=== PATIENT | female | born 1995 | race African-American/Black ===

== ENCOUNTER 2017-05-10 09:12 | Emergency (ER) | payer MEDICAID ==
[2010-09-15 09:46] VITALS: BMI 28.6
[2017-05-10 10:40] LABS: BASOPHILS 0.2 % (0-2); HEMATOCRIT 30.9 % (36.0-48.0); HEMOGLOBIN 9.6 g/dL (12-16); IMMATURE GRANULOCYTES 0.1 % (0-5); LYMPHOCYTES 6.8 % (15-50); MCH 23.2 pg (26.0-34.0); MCHC 31.1 g/dL (31.0-37.0); MCV 74.6 fL (80.0-100.0); MEAN PLATELET VOLUME 9.8 fL (7.4-10.4); MONOCYTES 0.9 % (2-11); RBC 4.14 10x6/uL (4.00-5.40); RDW 16.6 % (11.5-14.5); WBC 9.6 10x3/uL (4.8-10.8)
[2017-05-10 10:44] LABS: PLATELET COUNT 220 10x3/uL (130-400)
[2017-05-10 10:53] LABS: APPEARANCE CLOUDY (CLEAR); BACTERIA MANY /hpf (NONE SEEN); BILIRUBIN NEGATIVE (NEGATIVE); COLOR YELLOW (YELLOW); EPITHELIAL CELLS 0-5 /hpf (0-5); GLUCOSE NEGATIVE (NEGATIVE); KETONE NEGATIVE (NEGATIVE); MUCUS <1+ /lpf (NONE SEEN); NITRITE POSITIVE (NEGATIVE); PROTEIN 1+ mg/dL (NEGATIVE); RED CELLS - URINE 0-5 /hpf (0-5); WHITE CELLS - URINE 25-50 /hpf (0-5)
[2017-05-10 10:59] LABS: ALBUMIN 3.4 g/dL (3.4-5.0); ALKALINE PHOSPHATASE 51 U/L (46-116); ALT (SGPT) 13 U/L (10-68); BILIRUBIN - TOTAL 0.42 mg/dL (0.2-1.3); CALC OSMOLALITY 277 mosm/kg (275-300); CALCIUM 8.7 mg/dL (8.5-10.1); CARBON DIOXIDE 27.8 mmol/L (21.0-32.0); CHLORIDE - SERUM 106 mmol/L (98-107); CREATININE - SERUM 0.7 mg/dL (0.6-1.3); GLUCOSE 89 mg/dL (74-106); POTASSIUM - SERUM 3.4 mmol/L (3.5-5.1); PROTEIN - SERUM 6.8 g/dL (6.4-8.2); SODIUM 141 mmol/L (136-145); UREA NITROGEN 8 mg/dL (7-18); eGFR NON AFRICAN AMERICAN > 90 mL/min (90-120)
[2017-05-10 11:08] LABS: HCG URINE NEGATIVE (NEGATIVE)
== END 2017-05-10 12:20 | disposition home or self-care (01) ==
LOC: D.ER 09:12
PROVIDERS: Emergency Medicine
DX: R50.9 Fever, unspecified (principal); R10.32 Left lower quadrant pain; N10 Acute pyelonephritis; D64.9 Anemia, unspecified; J45.909 Unspecified asthma, uncomplicated

== ENCOUNTER 2017-08-04 12:54 | Emergency (ER) | payer MEDICAID ==
[2010-09-15 09:46] VITALS: BMI 28.6
== END 2017-08-04 15:06 | disposition home or self-care (01) ==
LOC: D.ER 12:54
DX: O26.891 Other specified pregnancy related conditions, first trimester (principal); Z3A.13 13 weeks gestation of pregnancy; J01.90 Acute sinusitis, unspecified; J20.9 Acute bronchitis, unspecified

== ENCOUNTER 2017-10-22 12:53 | Emergency (ER) | payer MEDICAID ==
[2010-09-15 09:46] VITALS: BMI 28.6
== END 2017-10-22 18:38 | disposition home or self-care (01) ==
LOC: D.ER 12:53
DX: B34.9 Viral infection, unspecified (principal)

== ENCOUNTER → 2017-12-31 17:04 | Outpatient (CLI) | payer MEDICAID ==
[2010-09-15 09:46] VITALS: BMI 28.6
[~2017-12-31 17:04] MED LIST: PRENATAL COMPLE1 TAB PO
[2017-12-31 17:26] LABS: APPEARANCE CLEAR (CLEAR); COLOR YELLOW (YELLOW); UDS - AMPHET NEGATIVE QUAL (NEGATIVE); UDS - BARB NEGATIVE QUAL (NEGATIVE); UDS - BENZO NEGATIVE QUAL (NEGATIVE); UDS - COCAINE NEGATIVE QUAL (NEGATIVE); UDS - OPIATE NEGATIVE QUAL (NEGATIVE); UDS - PCP NEGATIVE QUAL (NEGATIVE); UDS - THC NEGATIVE QUAL (NEGATIVE)
[2017-12-31 17:28] LABS: BILIRUBIN NEGATIVE (NEGATIVE); GLUCOSE NEGATIVE (NEGATIVE); KETONE MODERATE mg/dL (NEGATIVE); NITRITE NEGATIVE (NEGATIVE); PROTEIN NEGATIVE (NEGATIVE); UROBILINOGEN NORMAL (NORMAL)
== END | disposition home or self-care (01) ==
LOC: D.LDO 17:04
PROVIDERS: Obstetrics & Gynecology
DX: O26.893 Other specified pregnancy related conditions, third trimester (principal); Z3A.36 36 weeks gestation of pregnancy

== ENCOUNTER 2018-01-13 14:51 | Outpatient (CLI) | payer MEDICAID ==
[2010-09-15 09:46] VITALS: BMI 28.6
[2018-01-13] MEDS ORDERED: PRENATAL COMPLE1 TAB PO (14:57)
[2018-01-13 15:51] LABS: BASOPHILS 0.2 % (0-2); EOSINOPHILS 2.2 % (0-7); HEMATOCRIT 27.2 % (36.0-48.0); HEMOGLOBIN 8.7 g/dL (12-16); IMMATURE GRANULOCYTES 0.3 % (0-5); LYMPHOCYTES 21.2 % (15-50); MCH 25.7 pg (26.0-34.0); MCV 80.2 fL (80.0-100.0); MEAN PLATELET VOLUME 9.9 fL (7.4-10.4); MONOCYTES 10.2 % (2-11); NEUTROPHILS 65.9 % (40-80); PLATELET COUNT 236 10x3/uL (130-400); RBC 3.39 10x6/uL (4.00-5.40); RDW 13.5 % (11.5-14.5); WBC 5.9 10x3/uL (4.8-10.8)
[2018-01-13 16:04] LABS: ALBUMIN 2.4 g/dL (3.4-5.0); ALKALINE PHOSPHATASE 87 U/L (46-116); ALT (SGPT) 19 U/L (10-68); BILIRUBIN - DIRECT 0.09 mg/dL (0.00-0.30); BILIRUBIN - INDIRECT 0.25 mg/dL (0.00-1.00); BILIRUBIN - TOTAL 0.34 mg/dL (0.2-1.3); CALC OSMOLALITY 277 mosm/kg (275-300); CALCIUM 8.3 mg/dL (8.5-10.1); CARBON DIOXIDE 24.3 mmol/L (21.0-32.0); CHLORIDE - SERUM 107 mmol/L (98-107); CREATININE - SERUM 0.5 mg/dL (0.6-1.3); GLUCOSE 101 mg/dL (74-106); POTASSIUM - SERUM 3.2 mmol/L (3.5-5.1); PROTEIN - SERUM 5.4 g/dL (6.4-8.2); SODIUM 141 mmol/L (136-145); UREA NITROGEN 5 mg/dL (7-18); URIC ACID 2.5 mg/dL (2.6-7.2); eGFR NON AFRICAN AMERICAN > 90 mL/min (90-120)
[2018-01-24 18:19] VITALS: BMI 30.7
== END 2018-01-13 19:12 ==
LOC: D.LDO 14:51
PROVIDERS: Obstetrics & Gynecology
DX: O26.899 Other specified pregnancy related conditions, unspecified trimester (principal); Z3A.00 Weeks of gestation of pregnancy not specified

== ENCOUNTER 2018-01-24 14:44 | Inpatient (IN) | payer MEDICAID ==
[~2018-01-24] VITALS: Ht 167.6 cm; Wt 86.2 kg
--- NOTE | ~2018-01-24 | DS ---
PATIENT:GEOFF CROWELL :89 MEDICAL RECORD: [id number] DISCHARGE SUMMARY ADMISSION DATE: 01/24/18 DISCHARGE DATE: 01/26/18 DATE OF ADMISSION: 01/24/2018 HOSPITAL COURSE: A 22-year-old, G2, P1 at 39 weeks and 3 days, admitted in labor. The patient was noted to be O positive, group B strep negative, and rubella immune. PAST MEDICAL HISTORY: The patient had a past medical history significant for: 1. Mild intermittent asthma. 2. History of chlamydia during this . 3. History of anemia. The patient also with history of asthma. PAST SURGICAL HISTORY: The patient reported no significant surgical history. ALLERGIES: No allergies. MEDICATIONS: Included vitamins. FAMILY HISTORY: The patient reported no significant family history. SOCIAL HISTORY: Significant for being a former tobacco user. PHYSICAL EXAMINATION: VITAL SIGNS: Stable. LUNGS: Clear to auscultation. CARDIOVASCULAR: Heart with regular rate and rhythm. PELVIC: Uterus was appropriately sized and appropriately tender. EXTREMITIES: Lower extremities were free of erythema, swelling or Homans sign. LABORATORY DATA: Category 1 tracing at admission. Admit hemoglobin was 10.3 with a platelet count of 224. ASSESSMENT AND PLAN: 1. At admission, term intrauterine at 39 weeks. 2. Labor. 3. History of chlamydia. 4. Mild intermittent asthma. 5. Mild elevations in blood pressure, at which point preeclamptic labs were obtained. The patient progressed and AROM was performed with clear fluid, category 1 tracing. The patient progressed to second stage of labor and had a spontaneous vaginal delivery over an intact perineum. Delivery note is as on the chart. The patient did well overnight on day #0, tolerating general diet and p.o. pain meds, ambulating and voiding freely. On morning of day #1, the patient continued to do well. Vital signs remained stable. The patient was afebrile. Uterus is infraumbilical and nontender with minimal lochia. The patient was tolerating general diet and p.o. pain meds, ambulating freely. The patient continued to do well overnight on day #1. On the morning of day #2, the patient continued to be afebrile and normotensive. DISCHARGE SUMMARY REPORT [id number] GEOFF CROWELL Uterus was infraumbilical and nontender with minimal lochia. The patient was discharged home on day #2 with instructions to follow up in 4 weeks. TRANSINT:[id number] Voice Confirmation ID: [id number] DOCUMENT ID: [id number] TATI COREAS MD at 1304 CC: [id number] DICTATION DATE: 03/06/18624 BILLING COLLECTIONS SPECIALIST: 03/06/18 1615 DIS IN 01/26/18 [place] [id number] [place] [id number]
[2018-01-24 16:01] LABS: APPEARANCE CLEAR (CLEAR); BILIRUBIN NEGATIVE (NEGATIVE); COLOR YELLOW (YELLOW); GLUCOSE NEGATIVE (NEGATIVE); KETONE NEGATIVE (NEGATIVE); NITRITE NEGATIVE (NEGATIVE); PROTEIN NEGATIVE (NEGATIVE); SPECIFIC GRAVITY 1.015 (1.005-1.020); UROBILINOGEN NORMAL (NORMAL)
[2018-01-24 18:19] VITALS: BP 144/81; Ht 167.6 cm; Wt 86.2 kg
[2018-01-24 19:00] LABS: HEMATOCRIT 32.3 % (36.0-48.0); HEMOGLOBIN 10.3 g/dL (12-16); MCH 25.8 pg (26.0-34.0); MCHC 31.9 g/dL (31.0-37.0); MCV 80.8 fL (80.0-100.0); MEAN PLATELET VOLUME 10.3 fL (7.4-10.4); RDW 14.9 % (11.5-14.5); WBC 6.9 10x3/uL (4.8-10.8)
[2018-01-25 02:25] VITALS: BP 135/92
[2018-01-25 04:46] LABS: HEMATOCRIT 31.2 % (36.0-48.0); MCH 25.6 pg (26.0-34.0); MCHC 32.1 g/dL (31.0-37.0); MCV 79.8 fL (80.0-100.0); RBC 3.91 10x6/uL (4.00-5.40); RDW 14.7 % (11.5-14.5)
[2018-01-25 04:58] LABS: WBC 9.9 10x3/uL (4.8-10.8)
[2018-01-25 07:44] VITALS: BP 132/75
[2018-01-25 13:10] VITALS: BP 111/62
[2018-01-25 19:20] VITALS: BP 126/70
[2018-01-26 07:31] LABS: RAPID PLASMA REAGIN Non Reactive (Non Reactive)
[2018-01-26 07:50] VITALS: BP 122/70
[2018-01-26 12:00] VITALS: BP 123/86
== END 2018-01-26 14:30 | disposition home or self-care (01) | DRG 775 ==
LOC: D.LDO 14:44 → D.LD 18:00 → D.WS 18:00
PROVIDERS: Obstetrics & Gynecology
PROC: 10E0XZZ Delivery of Products of Conception, External Approach (ICD-10-PCS; principal; 2018-01-25)
DX: O16.4 Unspecified maternal hypertension, complicating childbirth (principal); Z3A.39 39 weeks gestation of pregnancy; Z37.0 Single live birth; Z87.891 Personal history of nicotine dependence

== ENCOUNTER 2018-04-23 23:25 | Emergency (ER) | payer MEDICAID ==
[~2018-04-23] VITALS: Ht 167.6 cm; Wt 70.0 kg
[2018-04-23 23:27] VITALS: Ht 167.6 cm; Wt 70.0 kg
[2018-04-23 23:52] LABS: APPEARANCE CLEAR (CLEAR); COLOR YELLOW (YELLOW); GLUCOSE NEGATIVE (NEGATIVE); KETONE NEGATIVE (NEGATIVE); NITRITE NEGATIVE (NEGATIVE); PROTEIN NEGATIVE (NEGATIVE); UROBILINOGEN NORMAL (NORMAL)
[2018-04-23 23:53] LABS: BILIRUBIN NEGATIVE (NEGATIVE)
[2018-04-24] LABS: HCG SERUM NEGATIVE (NEGATIVE)
[2018-04-24 00:05] LABS: UDS - AMPHET NEGATIVE QUAL (NEGATIVE); UDS - BARB NEGATIVE QUAL (NEGATIVE); UDS - BENZO NEGATIVE QUAL (NEGATIVE); UDS - COCAINE NEGATIVE QUAL (NEGATIVE); UDS - OPIATE NEGATIVE QUAL (NEGATIVE); UDS - PCP NEGATIVE QUAL (NEGATIVE); UDS - THC NEGATIVE QUAL (NEGATIVE)
[2018-04-24 00:07] LABS: BASOPHILS 0.5 % (0-2); EOSINOPHILS 6.1 % (0-7); HEMATOCRIT 40.1 % (36.0-48.0); HEMOGLOBIN 13.2 g/dL (12-16); IMMATURE GRANULOCYTES 0.3 % (0-5); LYMPHOCYTES 54.7 % (15-50); MCH 26.8 pg (26.0-34.0); MCHC 32.9 g/dL (31.0-37.0); MCV 81.5 fL (80.0-100.0); MEAN PLATELET VOLUME 10.1 fL (7.4-10.4); MONOCYTES 7.4 % (2-11); RBC 4.92 10x6/uL (4.00-5.40); RDW 14.5 % (11.5-14.5); WBC 5.9 10x3/uL (4.8-10.8)
[2018-04-24 00:12] LABS: PLATELET COUNT 292 10x3/uL (130-400)
[2018-04-24 00:14] LABS: ACETAMINOPHEN 1.7 ug/mL (10.0-30.0); CALC OSMOLALITY 284 mosm/kg (275-300); CALCIUM 8.2 mg/dL (8.5-10.1); CARBON DIOXIDE 25.9 mmol/L (21.0-32.0); CHLORIDE - SERUM 107 mmol/L (98-107); CREATININE - SERUM 0.8 mg/dL (0.6-1.3); GLUCOSE 107 mg/dL (74-106); MAGNESIUM - SERUM 1.9 mg/dL (1.8-2.4); POTASSIUM - SERUM 3.4 mmol/L (3.5-5.1); SODIUM 144 mmol/L (136-145); THYROID STIMULATING HORMONE 2.94 uIU/mL (0.36-3.74); UREA NITROGEN 6 mg/dL (7-18); eGFR NON AFRICAN AMERICAN > 90 mL/min (90-120)
[2018-04-24 00:51] VITALS: BP 135/58
== END 2018-04-24 01:35 | disposition home or self-care (01) ==
LOC: D.ER 23:25
PROVIDERS: Emergency Medicine
DX: F43.23 Adjustment disorder with mixed anxiety and depressed mood (principal); Z76.5 Malingerer [conscious simulation]; F17.200 Nicotine dependence, unspecified, uncomplicated

== ENCOUNTER 2019-06-29 17:31 | Outpatient (CLI) | payer MEDICAID ==
[2018-04-23 23:27] VITALS: BMI 24.9
== END 2019-06-29 19:16 | disposition home or self-care (01) ==
LOC: D.LDO 17:31 → D.LD 17:31 → D.LDO 19:16
PROVIDERS: ATTEND Student in an Organized Health Care Education/Training Program
DX: O62.4 Hypertonic, incoordinate, and prolonged uterine contractions (principal); Z3A.36 36 weeks gestation of pregnancy

== ENCOUNTER 2019-07-03 07:44 | Inpatient (IN) | payer MEDICAID ==
[2019-07-03] VITALS (11 sets, daily range): BP systolic 118–153; BP diastolic 70–86; Ht 167.6 cm; Wt 86.2 kg
[~2019-07-03] VITALS: Ht 167.6 cm; Wt 86.2 kg
[2019-07-03 09:14] LABS: HEMATOCRIT 25.6 % (36.0-48.0); HEMOGLOBIN 7.8 g/dL (12-16); MCH 22.9 pg (26.0-34.0); MCHC 30.5 g/dL (31.0-37.0); MCV 75.1 fL (80.0-100.0); MEAN PLATELET VOLUME 10.1 fL (7.4-10.4); RBC 3.41 10x6/uL (4.00-5.40); RDW 14.5 % (11.5-14.5); WBC 5.9 10x3/uL (4.8-10.8)
--- NOTE | 2019-07-03 13:48 | NUR ---
BABY GIRL @ 1341 PLACENTA- 1342
--- NOTE | 2019-07-03 14:59 | NUR ---
1433 FUNDUS 2 FINGER BREATHS ABOVE UMBILICUS, FIRM AND MIDLINE
--- NOTE | 2019-07-03 14:59 | NUR ---
1500 FUNDUS 2 FINGER BREATHS ABOVE UMBILICUS, FIRM AND MIDLINE. NO CLOTS RETURN DURING MASSAGE
--- NOTE | 2019-07-03 15:18 | NUR ---
PT RECIEVED VIA BED TO ROOM 1274 FROM RECOVERY. PT AAOx3, RATING PAIN 6/10 AT INCISION AND CRAMPING. IV INFUSING ORDERED. SECOND UNIT PRBC INFUSING TO RIGHT HAND, PITOCIN IN NS INFUSING TO LEFT WRIST. LARGE OCCLUSIVE DRESSING OVER LT ABD INCISION IS C/D/I. FF, ML, U/U. SMALL RUBRA LOCHIA NOTED TO PERIPAD, NO CLOTS EXPRESSED WITH MASSAGE. ICE PACK OVER ABD INCISION. THOMPSON CATH DRAINING CLEAR YELLOW URINE TO BEDSIDE DRAINAGE. SCD'S ON LE BILAT AND ON PUMP. PT REQUESTING PAIN MED AND ICE. WILL ADMIN ORDERED. SRUx2, CL IN REACH.
--- NOTE | 2019-07-03 15:48 | NUR ---
PT REPORTS IMPROVEMENT IN PAIN. THOMPSON CATH DRAINING CLEAR YELLOW URINE. 125ML EMPTIED FROM UROMETER. FF, ML, U/U. SMALL RUBRA LOCHIA, NO CLOTS. THICK CERVICAL MUCOUS NOTED TO BE DISLODGED WITH LOCHIA WITH MASSAGE. PERIPAD CHANGED. PT DENIES NEEDS AT THIS TIME. SRUx2, CL IN REACH. IN [place] AT BEDSIDE.
--- NOTE | 2019-07-03 16:00 | NUR ---
BLOOD TRANFUSION COMPLETE. LINE FLUSHED WITH NS. RIGHT HAND PIV SALINE LOCKED.
--- NOTE | 2019-07-03 16:27 | NUR ---
THIS RN TO ROOM FOR FUNDAL CHECK. 400ML CLEAR YELLOW URINE EMPTIED FROM UROMETER. FF, ML, U/U. SMALL RUBRA LOCHIA WITH CERVICAL MUCOUS NOTED, PERIPAD CHANGED. NO CLOTS EXPELLED WITH MASSAGE. SRUx2, CL IN REACH. WILL CONT TO MONITOR.
--- NOTE | 2019-07-03 17:10 | NUR ---
DR PERSAUD PHONED AND NOTIFIED OF PT'S BP'S OF 140'S/80'S AND 150'S/80'S. ORDER RECEIVED TO CONTINUE TO MONITOR, AND NOTIFY OF ANY BP'S OF 160/100 OR GREATER. WILL CONT TO MONITOR.
--- NOTE | 2019-07-03 18:12 | NUR ---
THIS RN ROOM FOR FUNDAL CHECK. 550ML CLEAR YELLOW URINE EMPTIED FROM UROMETER. THOMPSON BAG EMPTIED FOR END OF SHIFT. FF, ML, U/U. SMALL RUBRA LOCHIA WITH MUCOUS NOTED, NO CLOTS EXPELLED WITH MASSAGE. PERIPAD CHANGED. PT PROVIDED WITH ICE AND ICE WATER PER REQUEST, ENCOURAGED TO SIP SLOWLY. NEW BAG PITOCIN HUNG ORDERED AT 125ML/H, SEE EMAR FOR DOC. PT DENIES FURTHER NEEDS AT THIS TIME. PT INSTRUCTED ON NEXT MED TIMES AVAILABLE FOR PAIN MEDS, VERBALIZES UNDERSTANDING AND DENIES QUESTIONS. SRUx2, CL IN REACH.
[2019-07-03 18:44] LABS: BASOPHILS 0.1 % (0-2); EOSINOPHILS 0.5 % (0-7); IMMATURE GRANULOCYTES 0.4 % (0-5); LYMPHOCYTES 9.6 % (15-50); MCH 23.6 pg (26.0-34.0); MCHC 31.3 g/dL (31.0-37.0); MCV 75.4 fL (80.0-100.0); MEAN PLATELET VOLUME 10.1 fL (7.4-10.4); MONOCYTES 6.5 % (2-11); NEUTROPHILS 82.9 % (40-80); PLATELET COUNT 226 10x3/uL (130-400); RBC 3.98 10x6/uL (4.00-5.40); RDW 15.1 % (11.5-14.5)
[2019-07-03 18:51] LABS: HEMOGLOBIN 9.4 g/dL (12-16)
--- NOTE | 2019-07-03 19:50 | NUR ---
PT RESTING IN BED. ASSESSMENT COMPLETE PER FLOWSHEET. VS OBTAINED. PT C/O INCISION PAIN RATING IT AT 9/10. MORPHINE 4MG GIVEN SIVP. BBS CLEAR. ACTIVE BS X4 QUADRANTS. FUNDUS FIRM AT UMBILICUS. LOW TRANSVERSE ABD INC COVERED WITH DRESSING C/D/I. SMALL AMOUNT OF LOCHIA NOTED ON PERIPAD. FC DRAINING TO GRAVITY WITH 250ML OF YELLOW URINE OBTAINED FROM BAG. THOMPSON SECURED TO PTS RIGHT LEG. THOMPSON AND PERICARE DONE. PERIPAD CHANGED SCDS ON AND WORKING PROPERLY. IV PATENT AND INFUSING NS WITH 20 UNIT PIT TO RIGHT WRIST. SL TO LEFT HAND. NO TENDERNESS OR REDNESS NOTED TO EITHER SITE. FRESH ICE PACK PLACED TO ABD INCISION. POC DISCUSSED INCLUDING PAIN MANAGEMENT FUNDAL CHECKS, LOCHIA, IV MEDICATIONS, AND FC. QUESTIONS ANSWERED. PT INSTRUCTED TO NOTIFY NURSE WITH ANY PROBLEMS, NEEDS, OR CONCERNS. BED IN LOW POSITION. SR UP X2. CALL LIGHT WITHIN PTS REACH.
--- NOTE | 2019-07-03 20:08 | NUR ---
THIS RN HAS ASSESSED THIS PT AND CONCURS WITH ASSESSMENT CHARTED BY Ammon JUDD RN. POC DISCUSSED, PT DENIES NEEDS AT THIS TIME. IN ARMS. CALL LIGHT AND PHONE WITHIN REACH. WILL CONTINUE TO MONITOR.
--- NOTE | 2019-07-03 20:30 | NUR ---
ORDERS REC'D TO SL PIV, D/C THOMPSON CATH, 600 MG PO MOTRIN Q6H ATC, 10/325 MG PERCOCET Q4PRN MODERATE-SEVERE PAIN, 5/325MG PERCOCET Q4PRN MILD-MODERATE PAIN AFTER 0100 WHEN PT FIRST WAKES UP IF SLEEPING DO NOT WAKE PT TO NORMALIZE AND TO ADT.
--- NOTE | 2019-07-03 20:35 | NUR ---
PT RESTING IN BED. IN OPEN CRIB AT BEDSIDE. PT REPORTS HER PAIN IS NOW 8/10. DENIES ANY COMPLAINTS OR NEEDS AT THIS TIME. INSTRUCTED PT TO NOTIFY NURSE WITH ANY PROBLEMS, NEEDS, OR CONCERNS. VERBALIZED UNDERSTANDING.
--- NOTE | 2019-07-03 21:50 | NUR ---
PT RESTING IN BED WITH EYES CLOSED. INFANT IN OPEN CRIB AT BEDSIDE. NO DISTRESS NOTED. BED IN LOW POSITION. SR UP X2. CALL LIGHT WITHIN PTS REACH.
--- NOTE | 2019-07-03 22:45 | NUR ---
PT RESTING IN BED HOLDING . DENIES ANY COMPLAINTS OR NEEDS AT THIS TIME. INSTRUCTED PT TO NOTIFY NURSE WITH ANY PROBLEMS, NEEDS, OR CONCERNS. VERBALIZED UNDERSTANDING. BED IN LOW POSITION. SR UP X2. CALL LIGHT WITHIN PTS REACH.
--- NOTE | 2019-07-03 23:30 | NUR ---
PT RESTING IN BED. VS OBTAINED. FUNDUS FIRM AT UMBILICUS. MODERATE AMOUNT OF LOCHIA NOTED ON PERIPAD. PERIPAD AND UNDER[PAD CHANGED. FC TO GRAVITY AND DRAINING YELLOW COLORED URINE WITH 400ML OF COLLECTED IN THOMPSON BAG. IV PATETNT AND NO REDNESS OR TENDERNESS NOTED. SCDS ON AND WORKING P[ROPERLY. FRESH ICE PACK PLACED TO ABD INCISION. WATER PITCHER FILLED. PT C/O PAIN. WILL PROVIDE PAIN MEDICATION PER EMAR. NO OTHER REQUEST MADE. INATRUCTED PT TO NOTIFY NURSE WITH ANY PROBLEMS, NEEDS, OR CONCERNS. VERBALIZED UNDERSTANDING. BED IN LOW POSITION. SR UP X2. CALL LIGHT WITHIN PT REACH.
--- NOTE | 2019-07-03 23:53 | NUR ---
MORHINE 4MG GIVEN SIVP PER PT REQUEST FOR C/O INCISIONAL PAIN. INSTRUCTED PT TO NOTIFY NURSE IF MEDICATION NOT EFFECTIVE OR WITH ANY OTHER PROBLEMS, NEEDS, OR COCNERNS. VERBALIZED UNDERSTANDING.
--- NOTE | 2019-07-04 00:30 | NUR ---
PT RESTING IN BED HOLDING . PT REPORTS THAT HER PAIN IS NOW AT 2/10. NO REQUEST MADE. BED IN LOW POSITION. SR UP X2. CALL LIGHT WITHIN PTS REACH.
--- NOTE | 2019-07-04 00:49 | NUR ---
SPOKE WITH TIFF IN LAB REGARDING 0000 CBC ORDER. PER TIFF, AAMIR WAS IN ER AND SHE WOULD NOTIFY HER TO COME TO UNIT TO DRAW ORDERED CBC.
--- NOTE | 2019-07-04 01:21 | NUR ---
COST ANALYST AT BEDSIDE FOR CBC DRAW.
[2019-07-04 01:40] LABS: BASOPHILS 0.2 % (0-2); EOSINOPHILS 1.2 % (0-7); HEMATOCRIT 27.7 % (36.0-48.0); HEMOGLOBIN 8.8 g/dL (12-16); IMMATURE GRANULOCYTES 0.2 % (0-5); LYMPHOCYTES 11.2 % (15-50); MCH 23.7 pg (26.0-34.0); MCHC 31.8 g/dL (31.0-37.0); MCV 74.7 fL (80.0-100.0); MEAN PLATELET VOLUME 9.9 fL (7.4-10.4); MONOCYTES 9.1 % (2-11); NEUTROPHILS 78.1 % (40-80); PLATELET COUNT 209 10x3/uL (130-400); RBC 3.71 10x6/uL (4.00-5.40); RDW 14.9 % (11.5-14.5); WBC 11.7 10x3/uL (4.8-10.8)
--- NOTE | 2019-07-04 01:50 | NUR ---
FC DC'D PER MD ORDER WITH 300ML OF YELLOW URINE COLLECTED IN THOMPSON BAG. PERICARE DONE. SMALL AMOUNT OF LOCHIA NOTED. PERIPAD AND PANTIES PLACED. FUNDUS FIRM AT UMBILICUS. IV SL AND FLUSHED. PT INSTRUCTED ON VOID CHECKS AND TO NOTIFY NURSE FOR ASSISTANCE WHEN NEEDING TO GET UP TO BATHROOM. PT TOLERATED WELL. BED IN LOW POSITION. SR UP X2. CALL LIGHT WITHIN PTS EACH.
--- NOTE | 2019-07-04 02:10 | NUR ---
PT RESTING IN BED PERCOCET 5 X1 TABLET GIVEN FOR C/O INCISIONAL PAIN. CRACKERS, PEANUT BUTTER, AND APPLE JUICE PROVIDED. INSTRUCTED PT TO NOTIFY NURSE WITH ANY OTHER PROBLEMS, NEEDS, OR CONCERNS. VERBALIZED UNDERSTANDING.
[2019-07-04 04:05] VITALS: BP 128/80
--- NOTE | 2019-07-04 04:05 | NUR ---
PT RESTING IN BED HOLDING . VS OBTAINED. PT DENIES ANY NEEDS AT THIS TIME. OFFERED TO ASSIST PT UP TO BATHROOM. PT DECLINED. NO NEEDS OR REQUEST MADE. SCDS ON AND WORKING PROPERLY. INSTRUCTED PT TO NOTIFY NURSE WITH ANY PROBLEMS, NEEDS, OR CONCERNS. VERBALIZED UNDERSTANDING. BED IN LOW POSITION. SR UP X2. CALL LIGHT WITHIN PTS REACH.
--- NOTE | 2019-07-04 05:45 | NUR ---
PT ASSISTED UP TO BATHROOM. VOIDED 100ML OF YELLOW URINE INTO SPECIPAN AND AN UNMEASURED AMOUNT INTO TOLIET. SCANT AMOUNT OF LOCHIA NOTED ON PERIPAD. CLEAN JEFF PAD PLACED. PT ASSISTED BACK TO BED. FRESH ICE PACK PLACED TO ABD INCISION. APPLE JUICE PROVIDED. NO OTHER REQUEST MADE. INSTRUCTED PT TO NOTIFY NURSE WITH ANY PROBLEMS, NEEDS, OR COCNERNS. VERBALIZED UNDERSTANDING. BED IN LOW POSITION. SR UP X2. CALL LIGHT WITHIN PTS REACH.
--- NOTE | 2019-07-04 06:09 | NUR ---
PT RESTING IN BED. PERCOCET 5 X1 TAB GIVEN FOR INCISIONAL PAIN. NO OTHER REQUEST MADE. INSTRUCTED PT TO NOTIFY NURSE WITH ANY PROBLEMS, NEEDS, OR CONCERNS. VERBALIZED UNDERSTANDING.
--- NOTE | 2019-07-04 06:57 | NUR ---
INFANT RETURNED TO NBN VIA OPEN CRIB PER PT REQUEST.
--- NOTE | 2019-07-04 07:30 | NUR ---
SHIFT REPORT TAKEN. PATIENT RESTING IN BED SUPINE WITH HOB ELEVATED. EATING REGUALR DIET BREAKFAST.
[2019-07-04 08:10] LABS: RAPID PLASMA REAGIN Non Reactive (Non Reactive)
[2019-07-04 09:00] VITALS: BP 129/76
--- NOTE | 2019-07-04 09:00 | NUR ---
ASSESSMENT COMLETED. FEEDING BABY. REQUESTING PAIN MEDICINE WHEN AVAILABLE. INFORMED PATIENT MOTRIN IS AVAILABLE AT 0930 AND PERCOCET AT 1000.
--- NOTE | 2019-07-04 09:30 | NUR ---
ASSISTED TO BATHROOM TO VOID. VOIDED WITHOUT DIFFICULTY. ASSISTED BACK TO BED. MOTRIN GIVEN. BOTH SALINE LOCKS FLUSHED WITHOUT DIFFICULTY.
--- NOTE | 2019-07-04 10:00 | NUR ---
ASSISTED TO SHOWER. LINENS CHANGED.
--- NOTE | 2019-07-04 10:20 | NUR ---
DRESSING REMOVED. INCISION DRY AND INTACT. 1/2 CM RED DRAINAGE NOTED ON RIGHT SIDE OF DRESSING. PERIPAD PLACED OVER INCISION.
--- NOTE | 2019-07-04 11:50 | NUR ---
TO ROOM TO CHECK ON PATIENT. SIGNIFICANT OTHER AND YOUNG CHILD AT BEDSIDE. PATIENT SITTING UP IN BED. STATES PAIN IS BETTER.
[2019-07-04 13:11] VITALS: BP 123/66
--- NOTE | 2019-07-04 13:12 | NUR ---
PT RESTING IN BED WITH TODDLER WATCHING TV WITH INFANT IN OPEN CRIB AT BEDSIDE. NO COMPLAINTS AT THIS TIME.
--- NOTE | 2019-07-04 15:00 | NUR ---
RESTING IN BED WITH EYES CLOSED. INFANT IN NURSERY. TODDLER ASLEEP ON COUCH AT BEDSIDE. NO OTHER FAMILY IN ROOM AT THIS TIME.
--- NOTE | 2019-07-04 15:50 | NUR ---
AMBULATING IN ROOM. REQUESTS PAIN MED.
[2019-07-04 16:30] VITALS: BP 135/81
--- NOTE | 2019-07-04 18:30 | NUR ---
PATIENT RESTING IN BED WITH TODDLER AT BEDSIDE AND IN OPEN CRIB AT BEDSIDE. PATIENT C/O IV IN LEFT FOREARM HURTING. BOTH SALINE LOCKS D/C'D. BOTH CATHETERS INTACT. BANDAGES PLACED OVER INSERTION SITES.
--- NOTE | 2019-07-04 19:00 | NUR ---
REPORT RECEIVED FROM AM SHIFT TO ASSUME PT CARE.
--- NOTE | 2019-07-04 19:56 | NUR ---
PERCOCET ADMINISTERED PER PT REQUEST, SEE EMAR
[2019-07-04 20:10] VITALS: BP 115/58
--- NOTE | 2019-07-04 20:20 | NUR ---
SHIFT ASSESSMENT COMPLETED BY KATE FIGUEROA AT THIS TIME, SEE FLOWSHEET
--- NOTE | 2019-07-04 21:10 | NUR ---
PT IS DOING WELL. NO C/O AT THIS TIME. SHE RATES HER PAIN AT A 2. RN TALKED TO HER ABOUT RESTING WHEN BABY IS IN THE NURSERY. SHE AGREES TO THIS. AT THIS TIME THE DADDY AND YOUNG SISTER ARE IN THE ROOM.
--- NOTE | 2019-07-04 22:30 | NUR ---
PT IS RESTING QUIETLY AT THIS TIME. NO C/O OR NEEDS.
[2019-07-04 23:47] VITALS: BP 133/77
--- NOTE | 2019-07-04 23:54 | NUR ---
PT WAS SITTING UP IN BED WITH BABY. SHE WAS IN THE PROCESS OF PUTTING BABY BACK IN THE CRIB. WHEN ASKED ABOUT HER PAIN LEVEL SHE SAID IT WAS OK. FUNDUS IS FIRM. INCISION HAS NO REDNESS OR DRAINAGE. PT IS UP AND DOWN WITH NO PROBLEM.
--- NOTE | 2019-07-05 01:51 | NUR ---
ROUNDING NOTE: PT IS RESTING PEACEFULLY WITH HER EYES CLOSED AT THIS TIME. RESPIRATIONS ARE EVEN AND NO DISTRESS. BABY IS AT THE BEDSIDE.
[2019-07-05 04:03] VITALS: BP 136/82
--- NOTE | 2019-07-05 04:03 | NUR ---
PT IS SLIGHTLY SITTING UP IN BED. SHE STATES HER PAIN IS 10/10. I REINFORCED THAT HER PERCOCET CAN BE GIVEN EVERY 4 HOURS NEEDED. BABY IS ASLEEP IN THE CRIB. NO NEEDS AT THIS TIME. PERCOCET AND MOTRIN GIVEN PO.
--- NOTE | 2019-07-05 05:05 | NUR ---
PT IS AWAKE FEEDING THE BABY. SHE RATES HER PAIN A 4 AT THIS TIME. NO NEW C/O OR NEEDS.
[2019-07-05 06:11] LABS: BASOPHILS 0.3 % (0-2); EOSINOPHILS 3.2 % (0-7); HEMATOCRIT 26.3 % (36.0-48.0); HEMOGLOBIN 8.3 g/dL (12-16); IMMATURE GRANULOCYTES 0.1 % (0-5); LYMPHOCYTES 24.1 % (15-50); MCH 23.9 pg (26.0-34.0); MCHC 31.6 g/dL (31.0-37.0); MCV 75.8 fL (80.0-100.0); MEAN PLATELET VOLUME 10.6 fL (7.4-10.4); MONOCYTES 9.4 % (2-11); NEUTROPHILS 62.9 % (40-80); PLATELET COUNT 209 10x3/uL (130-400); RBC 3.47 10x6/uL (4.00-5.40); RDW 15.5 % (11.5-14.5); WBC 9.4 10x3/uL (4.8-10.8)
--- NOTE | 2019-07-05 06:45 | NUR ---
DR. PERSAUD IN TO SEE PATIENT. REPORT RECEIVED FROM Khang OVIEDO RN.
--- NOTE | 2019-07-05 07:30 | NUR ---
IN TO SEE PATIENT. SITTING UP IN BED EATING BREAKFAST. FAMILY AT BEDSIDE. AT BEDSIDE IN OPEN CRIB. ASSESSMENT COMPLETED. NO COMPLAINTS OR REQUESTS AT THIS TIME. INFORMED PATIENT THAT DISCHARGE ORDER HAS BEEN RECIEVED FROM DR. PERSAUD.
[2019-07-05 07:35] VITALS: BP 134/74
[2019-07-05] MEDS ORDERED: PERCOCET 5-3251 TAB PO (09:19)
--- NOTE | 2019-07-05 10:30 | NUR ---
DISCHARGED TEACHING COMPLETED. PATIENT STATES UNDERSTANDING. APPOINTMENT CARD AND PRESCRIPTION GIVEN. DISCHARGED HOME IN STABLE CONDITION VIA WHEELCHAIR TO PRIVATE VEHICLE ACCOMPANIED BY NURSE.
--- NOTE | 2019-07-10 08:52 | OP ---
PATIENT NAME: GEOFF CROWELL MEDICAL RECORD: [id number] :93 LOCATION:[facility] [id number] ADMISSION DATE:07/03/19 SURGEON: IDA PERSAUD DO DATE OF OPERATION: 07/03/2019 PREOPERATIVE DIAGNOSIS: Nonreassuring heart tracing. POSTOPERATIVE DIAGNOSIS: Nonreassuring heart tracing. PRIMARY SURGEON: Ida Persaud DO ANESTHESIA: Jm Hadley CRNA. PROCEDURE: Primary low transverse section via Pfannenstiel incision. FINDINGS: Female , delivered at 1341. Weight 7 pounds 14 ounces, Apgars 9 and 9. Normal appearing uterus, bilateral fallopian tubes, and bilateral ovaries. SPECIMENS: Placenta and cord blood. ESTIMATED BLOOD LOSS: 1200 cc. IV FLUIDS: 1500 cc and 1 unit of PRBCs. URINE OUTPUT: 700 cc. COMPLICATIONS: None. CONDITION: Stable. PROCEDURE: The risks, benefits, alternatives and indications of the procedure were discussed with the patient. She voiced an understanding of the procedure and agreed to proceed. DESCRIPTION OF PROCEDURE: She was taken to the OR where spinal anesthesia was administered and found to be adequate. She was placed in the dorsal supine position with a leftward tilt. She was prepped and draped in the normal sterile fashion. A Pfannenstiel skin incision was made with a scalpel and carried down to the underlying layer of the fascia with the Bovie. The fascia was incised at the midline and extended laterally. The inferior aspect of the fascial incision was grasped with Gena clamps and the rectus muscle was dissected off sharply. Attention was then turned to the superior aspect of the fascial incision. The rectus muscle was dissected off in a similar fashion. The rectus muscle was in the midline down to the level of the peritoneum. The peritoneum was identified and noted to be free of adherent bowel and entered bluntly. The peritoneum was further with gentle traction. The bladder blade was inserted. The uterus was incised in a transverse fashion in the lower uterine segment and the incision was extended with cephalad and caudad traction. The infant's head was brought to the incision and the infant delivered without difficulty. Mouth and nose were suctioned. Cord was clamped and cut and the infant was handed off to awaiting pediatricians. The placenta was manually removed. The uterus was exteriorized and a moist lap was used to assure complete removal of placental membranes. The hysterotomy was closed with 0 Vicryl in a running locked fashion. Some bleeding was noted at the inferior OPERATIVE REPORT [id number] [place] portion on the left of the hysterotomy, which was ligated in [id number] fashion, otherwise good hemostasis was noted. Uterus, tubes, and ovaries were noted to be normal. The abdomen was irrigated with warm sterile water and the uterus, tubes, and ovaries were returned back to the abdominal cavity. A moist laparotomy sponge was used to assure complete removal of blood clots and fluid from the abdominal cavity. The hysterotomy was reinspected and noted to be hemostatic. The rectus muscle was closed with 2-0 Monocryl in a running fashion with good hemostasis. The fascial incision was closed with 0 Vicryl in running fashion with good hemostasis. The skin was closed in a subcuticular fashion with 3-0 Monocryl and Dermabond covering. Hemostasis noted. All the needle, lap, sponge, and instrument counts were correct times 2. The patient tolerated the procedure well and she was taken to the recovery room in stable condition. TRANSINT:[id number] Voice Confirmation ID: [id number] DOCUMENT ID: [id number] IDA PERSAUD DO at 0852 CC: [id number] DICTATION DATE: 07/03/19 1436 ADVERTISING SALES REPRESENTATIVE: 07/03/19 1832 DIS IN 07/05/19 [facility] [address] [place] [address]
== END 2019-07-05 10:45 | disposition home or self-care (01) | DRG 788 ==
LOC: D.LD 07:44
PROVIDERS: ADMIT Student in an Organized Health Care Education/Training Program; ATTEND Student in an Organized Health Care Education/Training Program
PROC: 3E033VJ Introduction of Other Hormone into Peripheral Vein, Percutaneous Approach (ICD-10-PCS; 2019-07-03)
PROC: 10D00Z1 Extraction of Products of Conception, Low, Open Approach (ICD-10-PCS; principal; 2019-07-03 13:00)
DX: O36.8330 Maternal care for abnormalities of the fetal heart rate or rhythm, third trimester, not applicable or unspecified (principal); Z3A.40 40 weeks gestation of pregnancy; Z37.0 Single live birth

== ENCOUNTER 2019-07-17 15:49 | Outpatient (CLI) | payer MEDICAID ==
[2019-07-03 08:12] VITALS: BMI 30.7
[2019-07-17] VITALS (24 sets, daily range): BP systolic 130–221; BP diastolic 74–129
[~2019-07-17 15:49] MED LIST changes: +PERCOCET 5-3251 TAB PO
--- NOTE | 2019-07-17 16:00 | NUR ---
PT RECEIVED AMB FROM DR PERSAUD OFFICE, PT HAD 2WEEK POST DELIVERY APPOINTMENT TODAY AND WAS SENT OVER DUE TO ELEVATED BLOOD PRESSURE. ORDERS RECEIVED FROM DR PERSAUD FOR SERIAL BP, PIH LABS AND IN AND OUT CATH. PT DENIES ANY QUESTIONS ABOUT PLAN OF CARE AT THIS TIME. SHE DOES C/O HEADACHE SINCE DISCHARGE HOME. LARGE CUP OF ICE PROVIDED SHE REQUESTED.
--- NOTE | 2019-07-17 16:28 | NUR ---
lab at bedside for blood draw.
--- NOTE | 2019-07-17 16:29 | NUR ---
pt states understanding of plan of care. Serial blood pressure started.
[2019-07-17 16:40] LABS: BASOPHILS 0.4 % (0-2); EOSINOPHILS 3.8 % (0-7); HEMATOCRIT 35.1 % (36.0-48.0); HEMOGLOBIN 10.9 g/dL (12-16); IMMATURE GRANULOCYTES 0.1 % (0-5); MCH 23.3 pg (26.0-34.0); MCHC 31.1 g/dL (31.0-37.0); MCV 75.2 fL (80.0-100.0); MEAN PLATELET VOLUME 9.6 fL (7.4-10.4); MONOCYTES 5.6 % (2-11); NEUTROPHILS 51.1 % (40-80); RBC 4.67 10x6/uL (4.00-5.40); RDW 15.8 % (11.5-14.5); WBC 7.1 10x3/uL (4.8-10.8)
[2019-07-17 16:41] LABS: PLATELET COUNT 345 10x3/uL (130-400)
[2019-07-17 17:02] LABS: CALC OSMOLALITY 279 mosm/kg (275-300); CALCIUM 8.4 mg/dL (8.5-10.1); CARBON DIOXIDE 26.3 mmol/L (21.0-32.0); CHLORIDE - SERUM 105 mmol/L (98-107); CREATININE - SERUM 0.7 mg/dL (0.6-1.3); GLUCOSE 98 mg/dL (74-106); POTASSIUM - SERUM 3.6 mmol/L (3.5-5.1); SODIUM 141 mmol/L (136-145); UREA NITROGEN 11 mg/dL (7-18); eGFR NON AFRICAN AMERICAN > 90 mL/min (90-120)
[2019-07-17 17:08] LABS: ALBUMIN 3.2 g/dL (3.4-5.0); ALKALINE PHOSPHATASE 94 U/L (46-116); ALT (SGPT) 15 U/L (10-68); BILIRUBIN - DIRECT 0.09 mg/dL (0.00-0.30); BILIRUBIN - INDIRECT 0.34 mg/dL (0.00-1.00); BILIRUBIN - TOTAL 0.43 mg/dL (0.2-1.3); URIC ACID 3.5 mg/dL (2.6-7.2)
--- NOTE | 2019-07-17 18:17 | NUR ---
pt up to bathroom to remove her bottoms request made for pt to not void so that in and out cath could be completed.
--- NOTE | 2019-07-17 18:30 | NUR ---
KERI RN AND Ammon KIRBY RN TO ROOM TO COMPLETE ORDERS AND DO IN AND OUT CATH, PT IN BED AND POSITIONED TO HER BACK WITH KNEES BENT, PT VOICES THAT SHE IS VERY NERVOUS AND REALLY DOES NOT WANT A CATH. REASSURED HER THAT WOULD NOT BE LEFT IN PLACE WOULD BE REMOVED AFTER URINE WAS OBTAINED. Ammon KIRBY RN DOES IN AND OUT CATH PER POLICY. NO IMMEDIATE URINE RETURN, PT QUESTIONED IF SHE VOIDED WHEN SHE CHANGED AND SHE ADMITS THAT SHE DID. EXPLAINED THAT CATH WOULD BE LEFT IN PLACE UNTIL URINE SAMPLE OBTAINE. LARGE ICE WATER PROVIDED. REPORT TO Ammon ROWLAND RN 7P-7A SHIFT.
--- NOTE | 2019-07-17 19:00 | NUR ---
PATIENT REPORT RECEIVED FROM AM SHIFT TO ASSUME PATIENT CARE.
--- NOTE | 2019-07-17 19:10 | NUR ---
PATIENT SENT FROM CLINIC BY DR PERSAUD TO HAVE HER BP EVALUATED. PATIENT HAS NO HISTORY OF CHRONIC BP ACCORDING TO PT. PT IS TWO WEEKS FROM A REPEAT C/S ON 07/03/19. PTS BP ON ADMIT FOR THAT VISIT WAS NOTED TO BE 152/86.
--- NOTE | 2019-07-17 19:20 | NUR ---
DR BALLARD CALLED AND GIVEN REPORT ON PATIENT ARRIVAL, LATEST BLOOD PRESSURE AND PT LABS REPORTED. REPORTED THAT NO URINE HAS BEEN OBTAINED,CATH IS IN PLACE. NEW ORDERS NOTED TO START IV, GIVE A 1000ML NS BOLUS, CLONIDINE 0.1MG POX1 NOW AND RECHECK BP IN ONE HOUR AND ADMINISTER NIFEDIPINE 60MG XL PO. CONTINUE TO OBSERVE OVERNIGHT.
--- NOTE | 2019-07-17 19:30 | NUR ---
PLAN OF CARE DISCUSSED WITH PATIENT AT THIS TIME, STATES THAT SHE HAS A HEADCHE THAT SHE RATES 4/10 ON THE PAIN SCALE.BC POWDER NOTED AT BEDSIDE, PT STATES THAT HER SIGNIFICANT OTHER BROUGHT THEM BUT SHE DIDNT TAKE ANY.
--- NOTE | 2019-07-17 19:30 | NUR ---
SHIFT ASSESSMENT COMPLETED AT THIS TIME BUT WASNT CHARTED UNTIL NOW
--- NOTE | 2019-07-17 19:33 | NUR ---
20 GAUGE IV STARTED TO LEFT HAND WITHOUT INCIDENT AT THIS TIME.
--- NOTE | 2019-07-17 19:37 | NUR ---
CLONIDINE 0.1MG PO PER MD ORDERS
--- NOTE | 2019-07-17 19:38 | NUR ---
PT INFORMED OF CRITICAL BP READINGS AND NEED FOR QUIET DARK ENVIRONMENT WITH NO STIMULATION. LIGHTS OUT AND TV VOLUME OFF.
--- NOTE | 2019-07-17 19:40 | NUR ---
1 LITER LR BOLUS INFUSING VIA ALARIS PUMP PER MD ORDERS. PT INFORMED OF NEED FOR CHILDREN TO GO HOME OR TO THE WAITING ROOM. PT VERBALIZES UNDERSTANDING
--- NOTE | 2019-07-17 19:40 | NUR ---
1 LITER NS BOLUS STARTED VIA INFUSION PUMP PER MD ORDERS
--- NOTE | 2019-07-17 19:54 | NUR ---
DR PERSAUD CALLED LABOR UNIT WITH CONCERN OVVER BLOOD PRESSURE READINGS SHE HAD SEEN FROM HOME. INFORMED HER THAT I HAD CALLED DR BALLARD BECAUSE HE IS [employer] AND SHE STATES THAT IS FINE.
--- NOTE | 2019-07-17 20:00 | NUR ---
IN AND OUT CATHETER THAT HAD BEEN PLACED BY DAYSHIFT NOTED TO HAVE COME OUT. MINIMAL AMT OF URINE NOTED IN BAG.
--- NOTE | 2019-07-17 20:10 | NUR ---
PT STATES THAT SHE HAS TO PEE NOW, IN AND OUT CATHETER PERFORMED WITH CLEAR YELLOW URINE RETURN. PT UP TO BATHROOM TO FINISH URINATING AND TO CHANGE INTO GOWN.
--- NOTE | 2019-07-17 20:25 | NUR ---
PHARMACY CALLED FOR JAKE, STATES THAT IT WILL BE A FEW MINUTES.
--- NOTE | 2019-07-17 20:30 | NUR ---
DR BALLARD NOTIFIED OF PT HEADACHE 05/18 AND CURRENT BP READING. NEW ORDERS NOTED FOR DEMEROL 50MG WITH PHENERGAN 25MG IM X1 NOW AND TO REPEAT CLONIDINE 0.1 MG PO.
--- NOTE | 2019-07-17 20:39 | NUR ---
PT STANDING UP ON SIDE OF BED, STATES THAT SHE CANT LAY DOWN BECAUSE IT MAKES HER HEADACHE WORSE. PLAN OF CARE REVIEWED WITH PT THAT HER FAMILY NEEDS TO GO OUT TO THE WAITING ROOM OR HOME SO SHE CAN REST AND WE CAN GET HER BLOOD PRESSURE READINGS DOWN, PT MADE AWARE OF THE CRITICAL BP READINGS AND NEED FOR MEDICATION. PT VERBALIZES UNDERSTANDING AND STATES THAT HER SIGNIFICANT OTHER WILL BE BACK TO GET THE BABY SOON. INFORMED PT THAT THIS WAS THE DOCTORS ORDERS.
--- NOTE | 2019-07-17 20:40 | NUR ---
DEMEROL AND PHENERGAN GIVEN IM AT THIS TIME PER MD ORDERS. CLONIDINE ADMINISTERED PO PER MD ORDERS, SEE EMAR.
--- NOTE | 2019-07-17 20:50 | NUR ---
PROCARDIA XL 60MG PO ADMINISTERED AT THIS TIME PER MD ORDERS. SEE EMAR
--- NOTE | 2019-07-17 20:51 | NUR ---
KOLBY MOTLEY RN TO PHARMACY TO GET PROCARDIA. PROCARDIA 60MG XL ADMINISTERED PO AT THIS TIME
--- NOTE | 2019-07-17 20:58 | NUR ---
DR. BALLARD CALLED AND INFORMED BY THIS NURSE OF PT. CURRENT BP. INFORMED THAT INFANT WAS LEFT IN ROOM FOR PT. TO CARE FOR BY FOB. FOB LEFT UNIT. INFORMED THAT PT. IS HOLDING HEAD AND UNABLE TO LIE IN BED DUE TO C/O SEVERE HEADACHE. ORDER RECEIVED AND INFORMED THIS NURSE TO CALL MD BACK AFTER APRESOLINE GIVEN AND RECHECK FOR RESPONSE. STATES HE WILL CONSIDER CONSULTING INTERNAL MEDICINE IF NO ADEQUATE DECREASE IN BP. STATES THAT HE WANTS OUT OF ROOM AND IF UNABLE TO REACH FOB AND [employer] NEEDS TO BE CALLED. ACCOUNT SUPPORT MANAGER CALLED AND INFORMED OF CRITICAL STATUS OF PT. AND NEED FOR ASSISTANCE FROM HER TO SECURE SOMEONE TO PICK INFANT UP IMMEDIATELY OR CONTACT [employer] PER ORDER OF MD. WATER TESTER STATES WILL COME [place].
--- NOTE | 2019-07-17 21:01 | NUR ---
APRESOLINE GIVEN SLOW IVP PER MD ORDERS, SEE EMAR
--- NOTE | 2019-07-17 21:03 | NUR ---
NORMAL SALINE INFUSING PER ALARIS PUMP AT 50ML/HR AT THIS TIME
--- NOTE | 2019-07-17 21:04 | NUR ---
DR BALLARD NOTIFIED OF PT CONTINUED C/O HEADACHE 05/18 AND CURRENT BP READINGS REPORTED. NEW ORDERS NOTED TO GIVEN LABETALOL 20MG SLOW IVP OVER TWO MINUTES.
--- NOTE | 2019-07-17 21:04 | NUR ---
COMMISSIONING SPECIALIST IN ROOM AND PHONE FOR FOB OBTAINED FROM PT. SO HE CAN COME SECURE FROM PT. AND HAS BEEN LEFT WITH HER.
--- NOTE | 2019-07-17 21:05 | NUR ---
BREATH SOUNDS NOTED TO BE CLEAR IN ALL BASES, HEART SOUNDS BOUNDING. TEMPERATURE 98.6 ORAL.
--- NOTE | 2019-07-17 21:08 | NUR ---
CAPITAL PROJECT ENGINEER AT NURSES STATION TALKING TO PTS SIGNIFICANT OTHER BY PHONE TO LET HIM KNOW HE NEEDS TO COME GET THE BABY DUE TO THE PTS MEDICAL CONDITION.
--- NOTE | 2019-07-17 21:09 | NUR ---
SIDE RAILS PADDED. PT. CHANGING POSITIONS FROM LYING TO SITTING FREQ. COMPLAINING OF EXTREME HEADACHE. MD IZQUIERDO.
--- NOTE | 2019-07-17 21:12 | NUR ---
LABETALOL 20MG SLOW IVP ADMINISTERED AT THIS TIME, SEE EMAR. PT CONTINUE TO COMPLAIN OF 10/10 PAIN WITH HER HEADACHE.
--- NOTE | 2019-07-17 21:15 | NUR ---
DR. ANNE AND Rosita CLIFTON FROM [facility] INTO ROOM AND INFANT TAKEN OUT OF ROOM. INFORMED PT. AND PT. IS AGREEABLE.
--- NOTE | 2019-07-17 21:20 | NUR ---
REFLEXES CHECKED AT THIS TIME, WNL.
--- NOTE | 2019-07-17 21:22 | NUR ---
PULSE OX PLACED AT THIS TIME
--- NOTE | 2019-07-17 21:24 | NUR ---
FATHER OF BABY TO LABOR UNIT AT THIS TIME, INFORMED OF PLAN OF CARE AND NEED TO BRING CHILDREN HOME. DR ANNE AT NURSES DESK ASKING WHAT TIME THE ATE. HE STATES THAT THE CHILDREN DONT LIVE WITH HIM BUT HE DOES KNOW HOW TO TAKE CARE OF THEM BECAUSE HE HAS NINE CHILDREN. SANJEEV STATES HE DESIRES TO SPEAK WITH .
--- NOTE | 2019-07-17 21:29 | NUR ---
DR BALLARD AT BEDSIDE ADMINISTERING FENTANYL 100MCG SLOW IVP AND FLUSHED WITH 10ML NS AT THIS TIME. PT RATES PAIN10/10, STATES THAT IT IS A POUNDING HEADACHE.
--- NOTE | 2019-07-17 21:30 | NUR ---
ECG LEADS PLACED PER KATE DIAZ
--- NOTE | 2019-07-17 21:32 | NUR ---
DR BALLARD TO NURSES STATION TO DISCUSS PLAN OF CARE WITH FOB.
--- NOTE | 2019-07-17 21:36 | NUR ---
DR. BALLARD ON UNIT AND TO DESK FOR FURTHER MEDS FOR PT.
[2019-07-17 21:41] LABS: APPEARANCE CLEAR (CLEAR); BILIRUBIN NEGATIVE (NEGATIVE); COLOR YELLOW (YELLOW); GLUCOSE NEGATIVE (NEGATIVE); KETONE NEGATIVE (NEGATIVE); NITRITE NEGATIVE (NEGATIVE); PROTEIN NEGATIVE (NEGATIVE); UROBILINOGEN NORMAL (NORMAL)
--- NOTE | 2019-07-17 21:42 | NUR ---
dr osborn remains at bedside. new orders noted to recheck bp in ten minutes and if systolic is greater than 160, give labetalol 10mg slow ivp.
[2019-07-17 21:43] LABS: RED CELLS - URINE 0-5 /hpf (0-5); WHITE CELLS - URINE OCC /hpf (NEGATIVE)
--- NOTE | 2019-07-17 21:56 | NUR ---
DR BALLARD AT BEDSIDE, AWARE OF BLOOD PRESSURE READINGS. THOMPSON CATHETER PLACED AT THIS TIME IN STERILE FASHION. PT C/O NOT WANTING A CATHETER, IMPORTANCE REITERATED AT THIS TIME AND CLEAR YELLOW URINE NOTED IN UROMETER.
[2019-07-17 21:57] LABS: UDS - AMPHET NEGATIVE QUAL (NEGATIVE); UDS - BARB NEGATIVE QUAL (NEGATIVE); UDS - BENZO NEGATIVE QUAL (NEGATIVE); UDS - COCAINE NEGATIVE QUAL (NEGATIVE); UDS - OPIATE NEGATIVE QUAL (NEGATIVE); UDS - PCP NEGATIVE QUAL (NEGATIVE); UDS - THC NEGATIVE QUAL (NEGATIVE)
--- NOTE | 2019-07-17 22:00 | NUR ---
WHILE STRAIGHTENING OUT THE PATIENTS BED COVERS A WAD OF MONEY WAS NOTED IN THE SHEETS. ASKED PT ABOUT IT AND SHE PICKED IT UP AND CLOSED HER HAND AROUND IT. STATES THAT SHE TOOK IT OUT OF HER BABY BAG BEFORE THE SIGNIFICANT OTHER LEFT BECAUSE SHE DIDNT WANT HIM TO HAVE IT. PT STATES THAT THERE IS 425.00 DOLLARS.
--- NOTE | 2019-07-17 22:02 | NUR ---
compazine 10 mg slow ivp per md orders
--- NOTE | 2019-07-17 22:14 | NUR ---
LOADING UNIT OPERATOR CRIMPING CALLED AND INFORMED THAT MONEY WAS FOUND IN THE PTS BED. STATES THAT SHE WILL SEND SECURITY DOWN TO LOCK IT UP
--- NOTE | 2019-07-17 22:29 | NUR ---
ER CHIEF ORTHOPTIST TO LABOR UNIT TO COLLECT PATIENTS MONEY. THIS RN COUNTED THE MONEY AND VERIFIED WITH CHIEF ORTHOPTIST AND PT. MONEY PLACED INTO ENVELOPE WITH SIGNED PAPERWORK AND SEALED IN FRONT OF PATIENT. ER CHIEF ORTHOPTIST TOOK ENVELOPE TO BE LOCKED UP AT THIS TIME
--- NOTE | 2019-07-17 23:04 | NUR ---
PT. ASLEEP AT PRESENT WITH RESPIRATIONS -14 AND UNLABORED. O2 SAT - 98 % LYING ON BACK WITH HOB AT 15 DEGREES.
--- NOTE | 2019-07-17 23:08 | NUR ---
PT. CURRENTLY LYING IN RT TILT. BP CUFF MOVED TO LT UPPER ARM. PT. AWAKENS ONLY BRIEFLY.
--- NOTE | 2019-07-17 23:51 | NUR ---
LABETALOL 10MG SLOW IVP PER MD ORDERS, SEE EMAR
[2019-07-18] VITALS (17 sets, daily range): BP systolic 105–183; BP diastolic 56–98
--- NOTE | 2019-07-18 00:24 | NUR ---
DR BALLARD CALLED AND GIVEN REPORT ON LAST TWO BLOOD PRESSURES AND ADMINISTRATION OF LABETALOL 10MG SLOW IVP. ALSO REPORTED PT C/O SLIGHT HEADACHE. NEW ORDERS NOTED FOR FENTANYL 50MCG SLOW IVP AND HE WILL CALL BACK WITH ANY FURTHER ORDERS.
--- NOTE | 2019-07-18 00:33 | NUR ---
Fentanyl 50mcg administered slow ivp per md orders at this time, see emar
--- NOTE | 2019-07-18 00:38 | NUR ---
DR. BALLARD CALLED UNIT AND ORDERS GIVEN FOR BP MANAGEMENT. ASKED REGARDING CT. STATES HE WANTS [place] WITHOUT CONTRAST. MEDICAL IMAGING INFORMED AND ALSO Ammon ROWLAND RN THAT IS CARING FOR THE PATIENT.
--- NOTE | 2019-07-18 00:50 | NUR ---
PT. TO MEDICAL IMAGING VIA BED ACCOMPANIED BY Ammon ROWLAND RN AND PERSONNEL FROM MEDICAL IMAGING.
--- NOTE | 2019-07-18 00:59 | NUR ---
DR. BALLARD CALLED UNIT. INFORMED MD THAT LABETALOL IV THAT WAS ORDERED WAS HELD DUE TO BP OF 130/74. MD STATES APPROVAL AND STATES THAT WAS WHAT HE WOULD HAVE ASKED US TO DO. REQUESTED LAB RESULTS THAT WERE DONE EARLIER IN DAY. SAME GIVEN. ORDERS RECEIVED.
--- NOTE | 2019-07-18 01:16 | NUR ---
PT BACK FROM CT VIA BED AT THIS TIME. MONITORS REAPPLIED.
--- NOTE | 2019-07-18 01:23 | NUR ---
LABETALOL ADMINISTERED, SEE EMAR
--- NOTE | 2019-07-18 03:52 | NUR ---
PT CONTINUES TO REST QUIETLY WITH EVEN RESPIRATIONS, OCCASSIONAL AUDIBLE SNORING NOTED. THOMPSON CATHETER CONTINUES TO DRAIN TO GRAVITY. BED REMAINS LOCKED IN LOW POSITION, SIDE RAILS UPX2 AND PADDED, CALL LIZARRAGA IN REACH. WILL CONTINUE TO MONITOR.
--- NOTE | 2019-07-18 05:50 | NUR ---
PATIENT RESTING QUIETLY WITH EYES CLOSED, RESPIRATIONS EVEN AND NO LABORED, OCCASSIONAL SNORING NOTED. NO DISTRESS NOTED. IV INFUSING WITH NO S/S OF INFILTRATION, THOMPSON CATHETER DRAINING TO GRAVITY WITH 175 ML CLEAR YELLOW URINE NOTED IN UROMETER. WILL CONTINUE TO MONITOR.
--- NOTE | 2019-07-18 06:15 | NUR ---
DR. BALLARD CALLED UNIT AND INFORMED OF LAST 5 BP READINGS. ORDERS RECEIVED.
--- NOTE | 2019-07-18 06:45 | NUR ---
PT REPORT TO AM SHIFT TO ASSUME PT CARE.
--- NOTE | 2019-07-18 07:30 | NUR ---
TO PT'S ROOM FOR AM ASSESSMENT. PT REPORTS HER HEADACHE IS GONE, AND SHE FEELS MUCH BETTER. IVF'S CONINTUE TO INFUSE AT 50 ML/HR, IV SITE WITHOUT REDNESS OR SWELLING OR PAIN. PT DENIES VISUAL DISTURBANCES, NEGATIVE CLONUS, NEGATIVE EPIGASTRIC PAIN, NO EDEMA NOTED. PT HAS THOMPSON CATH DRAINING LIGHT YELLOW URINE, 400 CC'S NOTED IN UROMETER BAG. PT HAS REGULAR BREAKFAST TRAY ON BEDSIDE TABLE, AND HAS EATEN 100 %. [place] LEMON [place] SERVED AT PT'S REQUEST. SR UP X2, CALL LIGHT AND PHONE WITHIN REACH.
--- NOTE | 2019-07-18 09:10 | NUR ---
DR. BALLARD ON UNIT, MD REVIEWS BP'S. OUTPUT REPORTED TO .
--- NOTE | 2019-07-18 09:15 | NUR ---
DR. BALLARD ON UNIT, MD TO ROOM TO SPEAK WITH PT. MD WILL DISCHARGE PT HOME ON LABETALOL 200 MG ONE PO Q 8 HRS, AND PT IS TO FOLLOW UP IN CLINIC IN [address] PERSAUD OR DR. BALLARD.
--- NOTE | 2019-07-18 09:45 | NUR ---
IV TO LEFT WRIST DC'D WITH CATH INTACT. PT JOSE RAMON WELL.
--- NOTE | 2019-07-18 10:00 | NUR ---
THOMPSON CATH DC'D WITH TOTAL OF 600 ML'S LIGHT YELLOW URINE EMPTIED. PT WANTS TO TAKE A SHOWER. CLEAN LINENS AND SOAP/SHAMPOO, TOOTHBRUSH/PASTE PROVIDED.
--- NOTE | 2019-07-18 10:30 | NUR ---
PT IS DRESSED AND READY FOR DISCHARGE. PT TO DESK, DISCHARGE INSTRUCTIONS EXPLAINED TO PT. PT ENCOURAGED TO CHECK BP AT LEAST ONCE DAILY AND REPORT FINDINGS TO MD, PT WILL RETURN TO SEE CLINIC TO SEE ON 07/20/19 @ 11:00 FOR FOLLOW UP. PT ENCOURAGED TO GET PRESCRIPTION FOR LABETALOL FILLED AND START MEDS TODAY, NEXT DOSE DUE AT 3 PM TODAY, AND ENCOURAGED PT TO START TAKING B2 SUPPLEMENT DAILY. PT AGREES. COPIES OF DISCHARGE INSTRUCTIONS PROVIDED TO PT. PT PROVIDED WITH INFORMATION HOW TO GO AND GET HER MONEY THAT SHE HAS LOCKED UP IN THE SAFE. PT AGREES.
[2019-07-18] MEDS ORDERED: NORMODYNE / TR200 MG PO (10:36)
--- NOTE | 2019-07-18 10:50 | NUR ---
PT READY FOR DISCHARGE, PT OFF UNIT AMBULATORY IN STABLE CONDITION, WITH SIG OTHER CARRYING IN CARSEAT, AND YOUNG DAUGHTER. PT REFUSES WHEELCHAIR FOR DISCHARGE HOME.
== END 2019-07-18 10:50 | disposition home or self-care (01) ==
LOC: D.LD 15:49 → D.LDO 15:49 → D.LD 20:05 → D.LDO 07-18 10:50
PROVIDERS: Obstetrics & Gynecology; ATTEND Student in an Organized Health Care Education/Training Program
DX: O16.9 Unspecified maternal hypertension, unspecified trimester (principal); Z3A.00 Weeks of gestation of pregnancy not specified; R51 Headache

== ENCOUNTER 2019-12-04 10:41 | Emergency (ER) | payer MEDICAID ==
[~2019-12-04] VITALS: Ht 167.6 cm; Wt 59.1 kg
[~2019-12-04 10:41] MED LIST changes: +NORMODYNE / TR200 MG PO
[2019-12-04 10:58] VITALS: Ht 167.6 cm; Wt 59.1 kg
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
[2019-12-04 11:19] LABS: HCG URINE NEGATIVE (NEGATIVE)
[2019-12-04 11:20] LABS: BILIRUBIN NEGATIVE (NEGATIVE); GLUCOSE NEGATIVE (NEGATIVE); KETONE NEGATIVE (NEGATIVE); NITRITE NEGATIVE (NEGATIVE); UROBILINOGEN NORMAL (NORMAL)
[2019-12-04 11:24] LABS: UDS - AMPHET NEGATIVE QUAL (NEGATIVE); UDS - BARB NEGATIVE QUAL (NEGATIVE); UDS - BENZO NEGATIVE QUAL (NEGATIVE); UDS - COCAINE NEGATIVE QUAL (NEGATIVE); UDS - OPIATE NEGATIVE QUAL (NEGATIVE); UDS - PCP NEGATIVE QUAL (NEGATIVE); UDS - THC NEGATIVE QUAL (NEGATIVE)
[2019-12-04 11:26] LABS: EOSINOPHILS 1.8 % (0-7); HEMATOCRIT 39.1 % (36.0-48.0); HEMOGLOBIN 12.4 g/dL (12-16); IMMATURE GRANULOCYTES 0.3 % (0-5); LYMPHOCYTES 32.2 % (15-50); MCH 26.2 pg (26.0-34.0); MCHC 31.7 g/dL (31.0-37.0); MCV 82.5 fL (80.0-100.0); MEAN PLATELET VOLUME 9.3 fL (7.4-10.4); MONOCYTES 4.8 % (2-11); NEUTROPHILS 59.9 % (40-80); PLATELET COUNT 291 10x3/uL (130-400); RBC 4.74 10x6/uL (4.00-5.40); RDW 12.8 % (11.5-14.5)
[2019-12-04 11:41] LABS: CALC OSMOLALITY 282 mosm/kg (275-300); CALCIUM 8.5 mg/dL (8.5-10.1); CARBON DIOXIDE 27.9 mmol/L (21.0-32.0); CHLORIDE - SERUM 106 mmol/L (98-107); CREATININE - SERUM 0.6 mg/dL (0.6-1.3); GLUCOSE 90 mg/dL (74-106); POTASSIUM - SERUM 3.4 mmol/L (3.5-5.1); SODIUM 143 mmol/L (136-145); UREA NITROGEN 7 mg/dL (7-18); eGFR NON AFRICAN AMERICAN > 90 mL/min (90-120)
[2019-12-04 11:47] LABS: ALBUMIN 4.4 g/dL (3.4-5.0); ALKALINE PHOSPHATASE 67 U/L (30-120); ALT (SGPT) 16 U/L (10-68); MAGNESIUM - SERUM 1.7 mg/dL (1.8-2.4); PROTEIN - SERUM 7.6 g/dL (6.4-8.2)
[2019-12-04 16:02] VITALS: BP 142/93
== END 2019-12-04 16:03 ==
LOC: D.ER 10:41
PROVIDERS: Family Medicine
DX: R45.851 Suicidal ideations (principal)

== ENCOUNTER → 2021-02-05 08:45 | Outpatient (CLI) | payer BC ==
[2019-12-04 10:58] VITALS: BMI 21.0
== END | disposition home or self-care (01) ==
LOC: D.MRI 08:45
PROVIDERS: ATTEND Student in an Organized Health Care Education/Training Program
DX: E22.1 Hyperprolactinemia (principal)